=== PATIENT | female | born 1965 | race African-American/Black ===

== ENCOUNTER 2023-07-10 09:01 | Outpatient (CLI) | payer BC | END 2023-07-10 09:02 | disposition home or self-care (01) | LOC: CSHMAMMO 09:01 | PROVIDERS: ATTEND Nurse Practitioner Family | DX: Z08 Encounter for follow-up examination after completed treatment for malignant neoplasm (principal); Z85.3 Personal history of malignant neoplasm of breast | CPT/HCPCS: G0279 ==